=== PATIENT | male | born 1970 | race Caucasian/White ===

== ENCOUNTER → 2018-06-16 | Outpatient (CLI) | payer MEDICARE, MEDICAID | LOC: M EKG 14:39 | DX: R00.2 Palpitations (principal) | CPT/HCPCS: 93226 ==

== ENCOUNTER 2018-06-24 09:44 | Day surgery (SDC) | payer MEDICARE, MEDICAID ==
[~2018-06-24] VITALS: Ht 175.3 cm; Wt 89.4 kg
[~2018-06-24 09:44] MED LIST: ATOR40TA75 PO; BUPR50TA PO; CITA20TA4 PO; COUM2TAB22 PO; FLAG500T PO; FLOM0.4C39 PO; KEPP10002 PO; MAGN1TAB25 PO; NS 1,000 ML IV ONE; PROBCAP4 PO; TAB-TAB5 PO; TRAM50TA2 PO; TYLE500T78 PO
[2018-06-24] MEDS ORDERED: PROPOFOL 200 MG/20 ML VIAL As Ordered ONE ×2 (14:29→14:54)
[2018-06-24] MEDS ORDERED: LIDOCAINE 2% INJ 100 MG/5 ML SDV (FOR ANES.) As Ordered ONE (14:29)
--- NOTE | 2018-06-24 15:04 | ROOR ---
Patient Name: Lon Lindsey Procedure Date: 06/24/2018 2:24 PM Date of : 1970 Age: 47 Room: [facility] Gender: Male Note Status: Finalized Procedure: Upper GI endoscopy Indications: Weight loss Providers: Nick Aguilar MD Referring MD: Leeanne Lr NP Requesting Provider: Medicines: Monitored Anesthesia Care Complications: No immediate complications. Procedure: Pre-Anesthesia Assessment: - Prior to the procedure, a History and Physical was performed, and patient medications and allergies were reviewed. The patient is competent. The risks and benefits of the procedure and the sedation options and risks were discussed with the patient. All questions were answered and informed consent was obtained. Patient identification and proposed procedure were verified by the physician, the nurse and the anesthesiologist in the procedure room. Mental Status Examination: alert and oriented. Airway Examination: normal oropharyngeal airway and neck mobility. Respiratory Examination: clear to auscultation. CV Examination: normal. Prophylactic Antibiotics: The patient does not require prophylactic antibiotics. Prior Anticoagulants: The patient has taken Coumadin (warfarin), last dose was 5 days prior to procedure. ASA Grade Assessment: IV - A patient with severe systemic disease that is a constant threat to life. After reviewing the risks and benefits, the patient was deemed in satisfactory condition to undergo the procedure. The anesthesia plan was to use monitored anesthesia care (MAC). Immediately prior to administration of medications, the patient was re-assessed for adequacy to receive sedatives. The heart rate, respiratory rate, oxygen saturations, blood pressure, adequacy of pulmonary ventilation, and response to care were monitored throughout the procedure. The physical status of the patient was re-assessed after the procedure. The Endoscope was introduced through the mouth, and advanced to the second part of duodenum. The upper GI endoscopy was accomplished without difficulty. The patient tolerated the procedure well. Findings: The examined esophagus was normal. Diffuse moderate inflammation characterized by erosions, erythema and granularity was found in the gastric body and in the gastric antrum. Biopsies were taken with a cold forceps for Helicobacter pylori testing. Verification of patient identification for the specimen was done by the physician and nurse using the patient's name, date and medical record number. Estimated blood loss was minimal. Diffuse severe inflammation characterized by congestion (edema), erosions and aphthous ulcerations was found in the duodenal bulb. Biopsies were taken with a cold forceps for histology. The second portion of the duodenum was normal. Biopsies for histology were taken with a cold forceps for evaluation of celiac disease. Impression: - Normal esophagus. - Gastritis. Biopsied. - Duodenitis. Biopsied. - Normal second portion of the duodenum. Biopsied. Recommendation: - Patient has a contact number available for emergencies. The signs and symptoms of potential delayed complications were discussed with the patient. Return to normal activities tomorrow. Written discharge instructions were provided to the patient. - Resume previous diet. - Continue present medications. - Resume Coumadin (warfarin) at prior dose today. Refer to primary physician for further adjustment of therapy. - Use Zantac (ranitidine) 150 mg PO Twice daily - to be taken proposal rep on empty stomach - 1/2 hour before breakfast and at bedtime. for 6 weeks. - Await pathology results. - Based on the biopsy results you will receive a phone call from GI clinic in 2-3 weeks to review the pathology results AND/OR your results will be faxed to your Primary care physician. - Return to primary care physician. Nick Aguilar MD Nick Aguilar MD 06/24/2018 3:03:43 PM This report has been signed electronically. Number of Addenda: 0 Note Initiated On: 06/24/2018 2:24 PM Estimated Blood Loss: Estimated blood loss was minimal.
--- NOTE | 2018-06-24 15:09 | ROOR ---
Patient Name: Lon Lindsey Procedure Date: 06/24/2018 2:26 PM Date of : 1970 Age: 47 Room: [facility] Gender: Male Note Status: Finalized Procedure: Colonoscopy Indications: Hematochezia, Weight loss Providers: Nick Aguilar MD Referring MD: Leeanne Lr NP Requesting Provider: Medicines: Monitored Anesthesia Care Complications: No immediate complications. Procedure: Pre-Anesthesia Assessment: - Prior to the procedure, a History and Physical was performed, and patient medications and allergies were reviewed. The patient is competent. The risks and benefits of the procedure and the sedation options and risks were discussed with the patient. All questions were answered and informed consent was obtained. Patient identification and proposed procedure were verified by the physician, the nurse and the anesthesiologist in the procedure room. Mental Status Examination: alert and oriented. Airway Examination: normal oropharyngeal airway and neck mobility. Respiratory Examination: clear to auscultation. CV Examination: normal. Prophylactic Antibiotics: The patient does not require prophylactic antibiotics. Prior Anticoagulants: The patient has taken Coumadin (warfarin), last dose was 5 days prior to procedure. ASA Grade Assessment: IV - A patient with severe systemic disease that is a constant threat to life. After reviewing the risks and benefits, the patient was deemed in satisfactory condition to undergo the procedure. The anesthesia plan was to use monitored anesthesia care (MAC). Immediately prior to administration of medications, the patient was re-assessed for adequacy to receive sedatives. The heart rate, respiratory rate, oxygen saturations, blood pressure, adequacy of pulmonary ventilation, and response to care were monitored throughout the procedure. The physical status of the patient was re-assessed after the procedure. The Colonoscope was introduced through the anus and advanced to the terminal ileum, with identification of the appendiceal orifice and IC valve. The colonoscopy was performed without difficulty. The patient tolerated the procedure well. The quality of the bowel preparation was not adequate to identify polyps 6 mm and larger in size. The terminal ileum, ileocecal valve, appendiceal orifice, and rectum were photographed. Scope insertion time was 5 minutes. Scope withdrawal time was 10 minutes. The total duration of the procedure was 15 minutes. Findings: Hemorrhoids were found on perianal exam. The terminal ileum appeared normal. Patchy moderate inflammation characterized by altered vascularity, erosions, erythema and granularity was found in the recto-sigmoid colon and in the descending colon. Biopsies were taken with a cold forceps for histology. Fluid aspiration for Clostridium difficile was performed. Verification of patient identification for the specimen was done by the physician and nurse using the patient's name, date and medical record number. Estimated blood loss was minimal. Multiple small and large-mouthed diverticula were found from sigmoid to descending colon. There was no evidence of diverticular bleeding. External and internal hemorrhoids were found during retroflexion. The hemorrhoids were medium-sized. Impression: - Preparation of the colon was inadequate. - Hemorrhoids found on perianal exam. - The examined portion of the ileum was normal. - Patchy moderate inflammation was found in the recto-sigmoid colon and in the descending colon secondary to colitis. Biopsied. Fluid aspiration performed. - Moderate diverticulosis from sigmoid to descending colon. There was no evidence of diverticular bleeding. - External and internal hemorrhoids. Recommendation: - Patient has a contact number available for emergencies. The signs and symptoms of potential delayed complications were discussed with the patient. Return to normal activities tomorrow. Written discharge instructions were provided to the patient. - High fiber diet. - Continue present medications. - Resume Coumadin (warfarin) at prior dose today. Refer to primary physician for further adjustment of therapy. - Await pathology results. - Repeat colonoscopy at age 49 for screening purposes. - Based on the biopsy results you will receive a phone call from GI clinic in 2-3 weeks to review the pathology results AND/OR your results will be faxed to your Primary care physician. - Return to primary care physician. Nick Aguilar MD Nick Aguilar MD 06/24/2018 3:08:55 PM This report has been signed electronically. Number of Addenda: 0 Note Initiated On: 06/24/2018 2:26 PM Estimated Blood Loss: Estimated blood loss was minimal.
[2018-06-24 15:29] VITALS: BP 131/80
== END 2018-06-24 15:40 | disposition home or self-care (01) ==
LOC: M OPP 09:44
PROVIDERS: ATTEND Internal Medicine Gastroenterology
DX: K64.8 Other hemorrhoids (principal); K52.9 Noninfective gastroenteritis and colitis, unspecified; K92.1 Melena; R63.4 Abnormal weight loss; K57.30 Diverticulosis of large intestine without perforation or abscess without bleeding; K29.70 Gastritis, unspecified, without bleeding; K29.80 Duodenitis without bleeding; I10 Essential (primary) hypertension; E78.5 Hyperlipidemia, unspecified; F41.9 Anxiety disorder, unspecified; R56.9 Unspecified convulsions; K57.92 Diverticulitis of intestine, part unspecified, without perforation or abscess without bleeding; J44.9 Chronic obstructive pulmonary disease, unspecified; I25.2 Old myocardial infarction; Z79.01 Long term (current) use of anticoagulants; Z79.891 Long term (current) use of opiate analgesic; Z79.899 Other long term (current) drug therapy; Z88.0 Allergy status to penicillin; Z88.8 Allergy status to other drugs, medicaments and biological substances; Z86.73 Personal history of transient ischemic attack (TIA), and cerebral infarction without residual deficits; Z86.718 Personal history of other venous thrombosis and embolism; Z87.891 Personal history of nicotine dependence

== ENCOUNTER 2019-04-24 12:20 | Day surgery (SDC) | payer MEDICARE, MEDICAID ==
[~2019-04-24] VITALS: Ht 175.3 cm; Wt 87.9 kg
[~2019-04-24 12:20] MED LIST changes: +ACET-683 PO; +ACET-861 PO; -CITA20TA4 PO; +CITA20TA6 PO; +COUM1TAB17 PO; +FECAL MICROBIOTA PREPARATION 250 ML BTL (J3590) XX ONE; +LIDOCAINE 2% INJ 100 MG/5 ML SDV (FOR ANES.) As Ordered ONE; -MAGN1TAB25 PO; +MAGN1TAB26 PO; +PROPOFOL 200 MG/20 ML VIAL As Ordered ONE
[2019-04-24] MEDS ORDERED: PROPOFOL 200 MG/20 ML VIAL As Ordered ONE (14:32)
--- NOTE | 2019-04-24 15:01 | ROOR ---
Patient Name: Lon Lindsey Procedure Date: 04/24/2019 2:15 PM Date of : 1970 Age: 48 Room: [facility] Gender: Male Note Status: Finalized Procedure: Colonoscopy Indications: Fecal transplant for treatment of recurrent Clostridium difficile diarrhea Providers: Nick Aguilar MD Referring MD: Manuel Root MD Requesting Provider: Medicines: Monitored Anesthesia Care Complications: No immediate complications. Procedure: Pre-Anesthesia Assessment: - Prior to the procedure, a History and Physical was performed, and patient medications and allergies were reviewed. The patient is competent. The risks and benefits of the procedure and the sedation options and risks were discussed with the patient. All questions were answered and informed consent was obtained. Patient identification and proposed procedure were verified by the physician, the nurse and the anesthesiologist in the procedure room. Mental Status Examination: alert and oriented. Airway Examination: normal oropharyngeal airway and neck mobility. Respiratory Examination: clear to auscultation. CV Examination: normal. Prophylactic Antibiotics: The patient does not require prophylactic antibiotics. Prior Anticoagulants: The patient has taken Coumadin (warfarin), last dose was day of procedure. ASA Grade Assessment: III - A patient with severe systemic disease. After reviewing the risks and benefits, the patient was deemed in satisfactory condition to undergo the procedure. The anesthesia plan was to use monitored anesthesia care (MAC). Immediately prior to administration of medications, the patient was re-assessed for adequacy to receive sedatives. The heart rate, respiratory rate, oxygen saturations, blood pressure, adequacy of pulmonary ventilation, and response to care were monitored throughout the procedure. The physical status of the patient was re-assessed after the procedure. The Colonoscope was introduced through the anus and advanced to the cecum, identified by appendiceal orifice and ileocecal valve. The colonoscopy was performed without difficulty. The patient tolerated the procedure well. The quality of the bowel preparation was poor. The ileocecal valve and the appendiceal orifice were photographed. Scope insertion time was 3 minutes. Scope withdrawal time was 6 minutes. The total duration of the procedure was 9 minutes. Findings: The perianal and digital rectal examinations were normal. Patchy moderate mucosal changes characterized by altered vascularity, congestion (edema), erythema, granularity and mucus were found from rectum to transverse colon. The decision was made to proceed with fecal microbiota transplant (bacteriotherapy). Donor stool was supplied by a third constitution party (purchased frozen stool) and prepared using water as per protocol. Approximately 250 mL of the donor stool was instilled in the ascending colon and in the cecum. A detailed colonoscopic exam could not be performed upon scope withdrawal secondary to limited visibility from the instilled stool. This precludes the ability to screen for colon cancer, and the patient was made aware of this prior to the procedure. Impression: - Preparation of the colon was poor. - Patchy moderate mucosal changes were found from rectum to transverse colon secondary to known recurrent C. difficile colitis. - Fecal Microbiota Transplant (Bacteriotherapy) performed in the ascending colon and in the cecum. - No specimens collected. Recommendation: - Patient has a contact number available for emergencies. The signs and symptoms of potential delayed complications were discussed with the patient. Return to normal activities tomorrow. Written discharge instructions were provided to the patient. - Resume previous diet. - Continue present medications. - Repeat colonoscopy at age 49 for screening purposes. - Return to primary care physician. - Telephone GI clinic if symptomatic in 1 week. Nick Aguilar MD Nick Aguilar MD 04/24/2019 3:00:37 PM Electronically signed by Nick Aguilar MD Number of Addenda: 0 Note Initiated On: 04/24/2019 2:15 PM Estimated Blood Loss: Estimated blood loss: none.
[2019-04-24 15:05] VITALS: BP 170/56
== END 2019-04-24 15:32 | disposition home or self-care (01) ==
LOC: M OPP 12:20
PROVIDERS: ATTEND Internal Medicine Gastroenterology
DX: A04.71 Enterocolitis due to Clostridium difficile, recurrent (principal); Z79.899 Other long term (current) drug therapy; Z88.0 Allergy status to penicillin; Z88.8 Allergy status to other drugs, medicaments and biological substances; Z91.048 Other nonmedicinal substance allergy status; Z86.73 Personal history of transient ischemic attack (TIA), and cerebral infarction without residual deficits; I25.2 Old myocardial infarction; F17.220 Nicotine dependence, chewing tobacco, uncomplicated